=== PATIENT | male | born 1985 | race African-American/Black ===

== ENCOUNTER 2025-03-11 15:56 | Emergency (ER) | payer OTHER ==
[~2025-03-11] VITALS: Ht 195.6 cm; Wt 152.0 kg
[2025-03-11 15:58] VITALS: TEMP 98.4
--- NOTE | 2025-03-11 16:32 | ED.PDOC ---
Back pain HPI HPI Comments 39-year-old male presents to the ER with a spouse and with a prior MHx of hypertension, heart murmur in the chief complaint of left ankle pain. Patient reports that he has been having lower extremity swelling for one week and accidentally slammed the car door against his ankle earlier today. Patient notes that he did hear a pop during that occasion. The ankle is very tender at this time. Denies any other associated symptoms at this time. Chief Complaint: Lower Extremity Time Seen by MD: 16:30 Reviewed Notes: Nurses Notes, Medications, Allergies Allergies: Coded Allergies: NO KNOWN ALLERGIES (Unverified , 03/11/25) Information Source: Patient Mode of Arrival: Ambulatory Timing: Days Duration: Since onset, Days Severity: Moderate Prehospital treatment: None Quality: Aching Onset: Blunt Trauma History of: None Associated signs and symptoms: None Past Medical History PAST MEDICAL HISTORY: Denies Surgical History: Denies all surgeries Family History Family History: Reviewed,noncontributory to illness, Unknown Social History Smoker: Non-Smoker Alcohol: Denies ETOH Use Drugs: Denies Drug Use Lives In: Home Constitutional: denies: chills, diaphoresis, fatigue, fever, malaise, sweats, weakness, others EENTM: denies: blurred vision, double vision, ear bleeding, ear discharge, ear drainage, ear pain, ear ringing, eye pain, eye redness, hearing loss, mouth pain, mouth swelling, nasal discharge, nose bleeding, nose congestion, nose pain, photophobia, tearing, throat pain, throat swelling, voice changes, others Respiratory: denies: cough, hemoptysis, orthopnea, SOB at rest, shortness of breath, SOB with excertion, stridor, wheezing, others Cardiovascular: denies: chest pain, dizzy spells, diaphoresis, Dyspnea on exertion, edema, irregular heart beat, left arm pain, lightheadedness, palpitations, PND, syncope, others Gastrointestinal: denies: abdomen distended, abdominal pain, blood streaked bowels, constipated, diarrhea, dysphagia, difficulty swallowing, hematemesis, melena, nausea, poor appetite, poor fluid intake, rectal bleeding, rectal pain, vomiting, others Genitourinary: denies: burning, dysuria, flank pain, frequency, hematuria, incontinence, penile discharge, penile sore, pain, testicle pain, testicle swell ing, urgency, others Neurological: denies: dizziness, fainting, headache, left sided numbness, left sided weakness, numbness, paresthesia, pre-existing deficit, right sided numbness, right sided weakness, seizure, speech problems, tingling, tremors, weakness, others Musculoskeletal: reports: others (Left ankle pain/swelling); denies: back pain, gout, joint pain, joint swelling, muscle pain, muscle stiffness, neck pain Integumetry: denies: bruises, change in color, change in hair/nails, dryness, laceration, lesions, lumps, rash, wounds, others Allergic/Immunocompromised: denies: Difficulty Healing, Frequent Infections, Hives, Itching, others Hematologic/Lymphatic: denies: anemia, blood clots, easy bleeding, easy bruising, swollen glands, others Endocrine: denies: excessive hunger, excessive sweating, excessive thirst, excessive urination, flushing, intolerance to cold, intolerance to heat, unexplained weight gain, unexplained weight loss, others Psychiatric: denies: anxiety, bipolar disorder, depression, hopeless, panic disorder, schizophrenia, sleepless, suicidal, others All Other Systems: Reviewed and Negative Physical Exam General Appearance: No Apparent Distress, Normal HEENT: Normal ENT Inspection, Pharynx Normal, TMs Normal Neck: Full Range of Motion, Non-Tender, Normal, Normal Inspection Respiratory: Chest Non-Tender, Lungs Clear, No Accessory Muscle Use, No Respiratory Distress, Normal Breath Sounds Cardiovascular: No Edema, No JVD, No Murmur, No Gallop, Normal Peripheral Pulses, Regular Rate/Rhythm Breast Exam: Deferred Gastrointestinal: No Organomegaly, Non Tender, No Pulsatile Mass, Normal Bowel Sounds, Soft Genitalia: Deferred Pelvic: Deferred Rectal: Deferred Extremities: No calf tenderness, Normal capillary refill, Normal inspection, Normal range of motion, Non-tender, No pedal edema Musculoskeletal : Apperance: Normal Neurologic: Alert, health nurse II-XII nml as Tested, No Motor Deficits, Normal Affect, Normal Mood, No Sensory Deficits Cerebellar Function: Normal Reflexes: Normal Skin: Dry, Normal Color, Warm Lymphatic: No Adenopathy Was a procedure done? Was a procedure done?: No X-Ray, Labs, Meds, VS Vital Signs Date Time Temp Pulse Resp B/P (MAP) Pulse Ox O2 Delivery O2 Flow Rate FiO2 03/11/25 17:08 91 18 98 Room Air 03/11/25 17:08 91 18 128/85 (99) 98 03/11/25 15:58 98.4 62 18 145/92 98 98.4 X-Ray, Labs, Meds, VS Comment 39-year-old male presents to the ER with a spouse and with a prior MHx of hypertension, heart murmur in the chief complaint of left ankle pain. Patient arrives alert and oriented, ABC's intact, afebrile, vital signs stable, saturating well in room air Peripheral IV insertion+ labs were ordered. CBC was ordered to exclude anemia, blood loss, or infection. BMP was ordered to exclude electrolyte abnormalities, renal failure, dehydration, hyperglycemia CMP was ordered to exclude electrolyte abnormalities, renal failure, dehydration, hyperglycemia and/or liver enzyme abnormalities. PT and INR were ordered to rule out coagulopathy. Troponin and BNP were ordered to rule out myocardial infarction, or congestive heart failure. Urinalysis was ordered to rule out UTI or hematuria. Diagnostic imaging ordered by me and results interpreted by radiology : Labs in the ED showed (pertinent+ and then pertinent-) Patient was given:_. Tolerated medications with no adverse reaction. Additional MDM Review of External, Non-ED records: External records reviewed. Discussion with independent historian (EMS, family) history obtained from the patient/parents (if applicable) at bedside Chronic conditions affecting care: None Social determinants of health affecting care: None Consideration of admission (observation or admission): I considered escalation of care to admission for this patient, however given the reassuring workup, the patient is safe for outpatient management. Discussion with the Radiology: No Tests considered but not performed: Prescription medication considered but not given: 12 lead EKG interpretation: Time of 1ST Reevaluation: 17:00 Reevaluation 1ST: Unchanged Patient Education/Counseling: Diagnosis, Treatment, Prognosis Family Education/Counseling: Diagnosis, Treatment, Prognosis SEPSIS Sepsis Screen Date sepsis recognized/suspect: Mar 11, 2025 Time Sepsis recognized/suspect: 1600 Recent Procedure: No On Antibiotic Therapy: No Respiratory Rate >20: No Heart Rate >90: No Temp<36 C (96.8 F) or >38.3 C: No SBP <90 or MAP <65 mmHG: No New Acute Mental Status Change: No Is the patient on CPAP, BIPAP,: No Physician Orders L Ankle 3 View (03/11/25 16:23) Lt Lower Dvt (03/11/25 16:23) Vital Signs Date Time Temp Pulse Resp B/P (MAP) Pulse Ox O2 Delivery O2 Flow Rate FiO2 03/11/25 17:08 91 18 98 Room Air 03/11/25 17:08 91 18 128/85 (99) 98 03/11/25 15:58 98.4 62 18 145/92 98 98.4 Departure 1 Departure Time of Disposition: 17:22 Impression: Primary Impression: Ankle sprain Qualified Codes: S93.402A - Sprain of unspecified ligament of left ankle, initial encounter Disposition: HOME / SELF CARE / HOMELESS Condition: Stable e-Prescriptions Ibuprofen (Ibuprofen) 600 Mg Tab 1 TAB PO TID for 10 Days, #30 TAB 0 Refills Prov: NYDIA BRITT NP 03/11/25 Discharged With: Self Critical Care Note Critical Care Time?: No Stability Stability form required: No I personally scribed for NYDIA BRITT NP ([email or web address]) on 03/11/25 at 16:32. Electronically submitted by Jose Napier ([email or web address]). NYDIA BRITT NP Mar 11, 2025 16:32
--- NOTE | 2025-03-11 17:01 | DVH ---
CLINICAL INDICATION: r/O FRACTURE TECHNIQUE: 2 radiographic views of the left ankle were obtained. Comparison: None FINDINGS/IMPRESSION: Tissue swelling is noted over the lateral malleolus. Bony alignment is normal. No fracture or dislocation.
[2025-03-11 17:08] VITALS: BP 128/85; PULSE 91; RESP 18; O2SAT 98
--- NOTE | 2025-03-11 17:17 | DVH ---
CLINICAL HISTORY: r/o dvt left lower extremity pain TECHNIQUE: Color and duplex doppler imaging of the left lower extremity veins was performed. Vessel c ompression if possible was also performed. WID: COMPARISON: XY L ANKLE 3 VIEW on DOS: 03/11/25 FINDINGS: Left common femoral vein: Normal compressibility and flow. Left femoral vein: Normal compressibility and flow. Left popliteal vein: Normal compressibility and flow. Proximal calf veins are normally compressible. IMPRESSION: 1. NO SONOGRAPHIC EVIDENCE FOR DEEP VENOUS THROMBOSIS IN THE LEFT LOWER EXTREMITY VEINS.
[2025-03-11] MEDS ORDERED: IBUP-1454 PO (17:23)
== END 2025-03-11 17:26 | disposition home or self-care (01) ==
LOC: ER 15:56
DX: S93.402A Sprain of unspecified ligament of left ankle, initial encounter (principal); I10 Essential (primary) hypertension; Z86.718 Personal history of other venous thrombosis and embolism; W23.0XXA Caught, crushed, jammed, or pinched between moving objects, initial encounter; Y93.89 Activity, other specified; Y92.89 Other specified places as the place of occurrence of the external cause; Y99.8 Other external cause status
CPT/HCPCS: 73610; 93971

== ENCOUNTER 2025-04-03 23:22 | Emergency (ER) | payer MEDICAID, OTHER ==
[~2025-04-03] VITALS: Ht 195.6 cm; Wt 140.0 kg
[~2025-04-03 23:22] MED LIST: IBUP-1454 PO
[2025-04-04 01:12] VITALS: BP 123/92; PULSE 93; RESP 18; TEMP 96.6; O2SAT 97
--- NOTE | 2025-04-04 01:17 | ED.PDOC ---
General HPI Comments 39-year-old male presents to the ED chief complaint pain nine lesion. Patient states had lesions since he was a child notes over the past two weeks increasing growth and pain. Denies history of STDs, nausea, vomiting, urinary complaints, drainage or any other concerns at this time. Chief Complaint: Urinary Time Seen by MD: 23:24 Reviewed notes: Nurses Notes, Medications, Allergies Allergies: Coded Allergies: NO KNOWN ALLERGIES (Unverified , 03/11/25) Home Meds Active Scripts Clobetasol Propionate (Clobetasol Propionate) 0.05 % Cre, 1 APPLIC TOP BID for 10 Days, #15 GRAMS Prov:KAT HAILE BINDERY SUPERVISOR 04/04/25 Ibuprofen (Ibuprofen) 800 Mg Tab, 800 MG PO Q8HP PRN for 10 Days, #30 TAB Prov:KAT HAILE BINDERY SUPERVISOR 04/04/25 Ibuprofen (Ibuprofen) 600 Mg Tab, 1 TAB PO TID for 10 Days, #30 TAB 0 Refills Prov:NYDIA BRITT ORDER PACKER 03/11/25 Information Source: Patient Mode of Arrival: Ambulatory Past Medical History PAST MEDICAL HISTORY: Denies Surgical History: Denies all surgeries Family History Family History: Reviewed,noncontributory to illness, Unknown Social History Smoker: Non-Smoker Alcohol: Denies ETOH Use Drugs: Denies Drug Use Lives In: Home All Other Systems: Reviewed and Negative (see hpi) Physical Exam General Appearance: No Apparent Distress, Normal HEENT: Pharynx Normal Neck: Full Range of Motion, Non-Tender Respiratory: Lungs Clear, No Respiratory Distress, Normal Breath Sounds Cardiovascular: No Murmur, Normal Peripheral Pulses, Regular Rate/Rhythm Breast Exam: Deferred Gastrointestinal: Non Tender, Soft Genitalia: Foreskin ([place] size nodule under foreskin with moderate tenderness on palpation no noted erythema or drainage), Deferred Pelvic: Deferred Rectal: Deferred Extremities: Normal capillary refill, Normal range of motion Musculoskeletal : Apperance: Normal Neurologic: Alert, No Motor Deficits, Normal Affect, Normal Mood, No Sensory Deficits Cerebellar Function: Normal Reflexes: NOT DONE Skin: Dry, Normal Color, Warm Lymphatic: No Adenopathy Was a procedure done? Was a procedure done?: No Differential Diagnosis Kidney stone (Female): N/A Penile/Scrotal: STD, Hydrocele X-Ray, Labs, Meds, VS Vital Signs Date Time Temp Pulse Resp B/P (MAP) Pulse Ox O2 Delivery O2 Flow Rate FiO2 04/04/25 01:12 96.6 93 18 123/92 (102) 97 96.6 04/04/25 01:12 93 18 97 Room Air 04/03/25 23:24 96.6 93 18 123/92 97 96.6 X-Ray, Labs, Meds, VS Comment Trial steroid cream. Advised to call his PCP referral to Urology for possible surgical removal and biopsy Time of 1ST Reevaluation: 00:55 Reevaluation 1ST: Unchanged Time of 2ND Reevaluation: 01:18 Reevaluation 2ND: Improved Patient Education/Counseling: Diagnosis, Treatment, Need For Follow Up Family Education/Counseling: No Family Present ( ) SEPSIS Sepsis Screen Date sepsis recognized/suspect: Apr 03, 2025 Time Sepsis recognized/suspect: 2329 Recent Procedure: No On Antibiotic Therapy: No Respiratory Rate >20: No Heart Rate >90: No Temp<36 C (96.8 F) or >38.3 C: No SBP <90 or MAP <65 mmHG: No New Acute Mental Status Change: No Is the patient on CPAP, BIPAP,: No Physician Orders Oxycodone W/ Acet 5/325mg Tab (Percocet (04/04/25 01:30) Vital Signs Date Time Temp Pulse Resp B/P (MAP) Pulse Ox O2 Delivery O2 Flow Rate FiO2 04/04/25 01:12 96.6 93 18 123/92 (102) 97 96.6 04/04/25 01:12 93 18 97 Room Air 04/03/25 23:24 96.6 93 18 123/92 97 96.6 Departure 1 Departure Time of Disposition: 01:18 Impression: Primary Impression: Nodule of shaft of penis Disposition: 01 HOME / SELF CARE / HOMELESS Condition: Stable e-Prescriptions Clobetasol Propionate (Clobetasol Propionate) 0.05 % Cre 1 APPLIC TOP BID for 10 Days, #15 GRAMS Prov: KAT HAILE 04/04/25 Ibuprofen (Ibuprofen) 800 Mg Tab 800 MG PO Q8HP PRN for 10 Days, #30 TAB Prov: KAT HAILE 04/04/25 Discharged With: Self Critical Care Note Critical Care Time?: No Stability Stability form required: KAT Turner Apr 04, 2025 01:17
[2025-04-04] MEDS ORDERED: IBUP-1456 PO (01:21)
[2025-04-04] MEDS ORDERED: CLOB0.055 TOP (01:21)
[2025-04-04] MEDS: OXYCODONE W/ ACETAMINOPHEN 5/325MG TABLET PO ONE (01:23)
== END 2025-04-04 01:30 | disposition home or self-care (01) ==
LOC: ER 23:26
DX: N48.89 Other specified disorders of penis (principal); Z79.899 Other long term (current) drug therapy